=== PATIENT | male | born 1945 | race Caucasian/White ===

== ENCOUNTER 2018-07-04 11:57 | Emergency (ER) | payer BC, OTHER ==
[2018-07-04] MEDS ORDERED: LEVALBUTEROL 1.25 MG/3 ML NEB ONE (13:38)
--- NOTE | 2018-07-04 14:07 | RAD REPORT ---
EXAM DESCRIPTION: RAD - Chest Single View - 07/04/2018 1:53 pm CLINICAL HISTORY: Cough, congestion, fever COMPARISON: None. TECHNIQUE: AP portable chest image was obtained 1348 hours . FINDINGS: Lung volumes are low. Interstitial markings are prominent with the baseline for the patien t unknown. A viral infiltrate or noninfectious interstitial edema cannot be excluded. There is patchy opacification along the left base that could be an early left base pneumonia or atelectasis. Heart a nd vasculature are normal. No measurable pleural effusion and no pneumothorax. No acute bony abnormal ity seen. No acute aortic findings suspected. IMPRESSION: Atelectasis versus early pneumonia lateral left lung base. Diffusely prominent interstitial markings on a baseline examination. A viral infiltrate or noninfecti ous interstitial edema are both possible.
[2018-07-04 14:21] LABS: Absolute Lymphocytes (CBC) 1.5 K/uL (0.7-4.9); Absolute Monocytes 1.2 K/uL (0.1-1.3); Absolute Neutrophil 8.1 K/uL (1.8-8.0); Basophils % 0.4 % (0-1.3); Eosinophils % 0.3 % (0-4.4); Hematocrit 43.3 % (39.6-49.0); Lymphocytes % 13.6 % (15.3-44.8); MPV 8.4 fL (7.6-11.3); Monocytes % 10.7 % (3.3-12.3); RBC Red Blood Cell Count 4.79 M/uL (4.33-5.43)
[2018-07-04 14:22] LABS: Protime INR 1.19
[2018-07-04 14:42] LABS: ALT/SGPT 35 U/L (12-78); AST/SGOT 19 U/L (15-37); Albumin 4.2 g/dL (3.4-5.0); Alkaline Phosphatase 91 U/L (45-117); BUN Blood Urea Nitrogen 11 mg/dL (7-18); Bicarbonate 30 mmol/L (21-32); Bilirubin Direct 0.3 mg/dL (0-0.2); Glucose Level 114 mg/dL (74-106); Magnesium 2.3 mg/dL (1.8-2.4); NT PRO-BNP 270 pg/mL (<125); Potassium 3.8 mmol/L (3.5-5.1); Protein, Total 6.9 g/dL (6.4-8.2); Sodium Level 142 mmol/L (136-145); Troponin (Emerg Dept Use Only) < 0.02 ng/mL (0.0-0.045)
[2018-07-04] MEDS ORDERED: NA CHLORIDE 0.9% 500 ML ONE (14:48)
--- NOTE | 2018-07-04 15:34 | EDPHYS ---
Physician Documentation [facility] Name: Yelitza Seaman Age: 73 yrs Sex: Male : 1945 Arrival Date: 07/04/2018 Time: 12:02 Bed 26 Private MD: ED Physician Hayden Schreiber HPI: 07/04 15:29 This 73 yrs old Male presents to ER via Wheelchair with complaints of Chest kdr Tightness, Cough. 15:29 The patient or guardian reports cough, that is intermittent, described as mild, with no kdr sputum. Onset: The symptoms/episode began/occurred gradually, 2 day(s) ago. Severity of symptoms: At their worst the symptoms were mild, in the emergency department the symptoms are unchanged. Modifying factors: The symptoms are alleviated by nothing, the symptoms are aggravated by exertion. Associated signs and symptoms: Pertinent positives: chest pain, nausea, Pertinent negatives: diarrhea, ear ache, fever, rhinorrhea, sore throat, vomiting. The patient has not experienced similar symptoms in the past. The patient has not recently seen a physician. Historical: - Allergies: 12:14 Morphine; hb - Home Meds: 12:14 lisinopril 10 mg Oral tab [Active]; hb - PMHx: 12:14 Hypertension; Prostate CA; hb - PSHx: 12:14 cataracts; prostatectomy; hb - Immunization history:: Adult Immunizations up to date. - Social history:: Smoking status: Patient/guardian denies using tobacco. - Ebola Screening: : No symptoms or risks identified at this time. ROS: 15:29 Constitutional: Negative for fever, chills, and weight loss, Eyes: Negative for injury, kdr pain, redness, and discharge, ENT: Negative for injury, pain, and discharge, Neck: Negative for injury, pain, and swelling, Cardiovascular: Negative for chest pain, palpitations, and edema, Abdomen/GI: Negative for abdominal pain, nausea, vomiting, diarrhea, and constipation, Back: Negative for injury and pain, : Negative for injury, bleeding, discharge, and swelling, MS/Extremity: Negative for injury and deformity, Skin: Negative for injury, rash, and discoloration, Neuro: Negative for headache, weakness, numbness, tingling, and seizure activity. Psych: Negative for depression, anxiety, suicide ideation, homicidal ideation, and hallucinations, Allergy/Immunology: Negative for hives, rash, and allergies, Endocrine: Negative for neck swelling, polydipsia, polyuria, polyphagia, and marked weight changes, Hematologic/Lymphatic: Negative for swollen nodes, abnormal bleeding, and unusual bruising. 15:29 Respiratory: Positive for cough, with no reported sputum, dyspnea on exertion, shortness of breath, Negative for hemoptysis, orthopnea, pleurisy, wheezing. Exam: 15:29 Constitutional: This is a well developed, well nourished patient who is awake, alert, kdr and in no acute distress. Head/Face: Normocephalic, atraumatic. Eyes: Pupils equal round and reactive to light, extra-ocular motions intact. Lids and lashes normal. Conjunctiva and sclera are non-icteric and not injected. Cornea within normal limits. Periorbital areas with no swelling, redness, or edema. Neck: Trachea midline, no thyromegaly or masses palpated, and no cervical lymphadenopathy. Supple, full range of motion without nuchal rigidity, or vertebral point tenderness. No Meningismus. Chest/axilla: Normal chest wall appearance and motion. Nontender with no deformity. No lesions are appreciated. Cardiovascular: Regular rate and rhythm with a normal S1 and S2. No gallops, murmurs, or rubs. Normal PMI, no JVD. No pulse deficits. Abdomen/GI: Soft, non-tender, with normal bowel sounds. No distension or tympany. No guarding or rebound. No evidence of tenderness throughout. Back: No spinal tenderness. No costovertebral tenderness. Full range of motion. Skin: Warm, dry with normal turgor. Normal color with no rashes, no lesions, and no evidence of cellulitis. MS/ Extremity: Pulses equal, no cyanosis. Neurovascular intact. Full, normal range of motion. Neuro: Awake and alert, GCS 15, oriented to person, place, time, and situation. Cranial nerves II-XII grossly intact. Motor strength 5/5 in all extremities. Sensory grossly intact. Cerebellar exam normal. Normal gait. Psych: Awake, alert, with orientation to person, place and time. Behavior, mood, and affect are within normal limits. 15:29 Respiratory: the patient does not display signs of respiratory distress, Respirations: normal, Breath sounds: rales, that are mild, are located in both bases, decreased breath sounds, that are mild, are scattered, rhonchi, that are mild, stridor, is not appreciated, wheezing: is not appreciated. Vital Signs: 12:11 BP 141 / 62; Pulse 73; Resp 16; Temp 99.1; Pulse Ox 100% on R/A; Pain 0/10; hb 13:13 Pulse 78; Resp 16; Temp 98.8; Pulse Ox 99% on R/A; Pain 2/10; ch 15:00 BP 140 / 58; Pulse 91; Resp 20; Pulse Ox 96% on R/A; Pain 2/10; ch 16:00 BP 131 / 76; Pulse 84; Resp 16; Temp 98.5; Pulse Ox 99% on R/A; Pain 0/10; ch MDM: 15:29 Data reviewed: vital signs, nurses notes, lab test result(s), radiologic studies. kdr Counseling: I had a detailed discussion with the patient and/or guardian regarding: the historical points, exam findings, and any diagnostic results supporting the discharge/admit diagnosis, lab results, radiology results. 15:34 Patient medically screened. [facility] 07/04 13:21 Order name: Basic Metabolic Panel [facility] 07/04 13:21 Order name: CBC with Diff [facility] 07/04 13:21 Order name: LFT's [facility] 07/04 13:21 Order name: Magnesium [facility] 07/04 13:21 Order name: NT PRO-BNP [facility] 07/04 13:21 Order name: PT-INR; Complete Time: 15:19 [facility] 07/04 13:21 Order name: Troponin (emerg Dept Use Only); Complete Time: 15:19 [facility] 07/04 13:21 Order name: Blood Culture Adult (2) [facility] 07/04 13:21 Order name: Basic Metabolic Panel; Complete Time: 15:19 [facility] 07/04 13:21 Order name: CBC with Automated Diff; Complete Time: 15:19 [facility] 07/04 13:21 Order name: Liver (Hepatic) Function; Complete Time: 15:19 [facility] 07/04 13:21 Order name: Magnesium; Complete Time: 15:19 [facility] 07/04 13:21 Order name: NT PRO-BNP; Complete Time: 15:19 [facility] 07/04 13:39 Order name: Flu; Complete Time: 15:19 [facility] 07/04 13:21 Order name: XRAY Chest (1 view); Complete Time: 15:19 [facility] 07/04 13:21 Order name: EKG; Complete Time: 13:22 [facility] 07/04 13:21 Order name: Cardiac monitoring; Complete Time: 16:00 [facility] 07/04 13:21 Order name: EKG - Nurse/Tech; Complete Time: 16:00 [facility] 07/04 13:21 Order name: IV Saline Lock; Complete Time: 15:59 [facility] 07/04 13:21 Order name: Labs collected and sent; Complete Time: 16:00 [facility] 07/04 13:21 Order name: O2 Per Protocol; Complete Time: 13:37 [facility] 07/04 13:21 Order name: O2 Sat Monitoring; Complete Time: 13:37 [facility] Administered Medications: 13:30 Drug: Xopenex (3) 1.25 mg Route: Inhalation; 15:31 Drug: Rocephin - (cefTRIAXone) 1 grams Route: IVPB; Infused Over: 30 mins; Site: left rv antecubital; Disposition: 07/04/18 15:34 Discharged to Home. Impression: Pneumonia, unspecified organism, Shortness of breath. - Condition is Stable. - Discharge Instructions: Community-Acquired Pneumonia, Adult, Shortness of Breath, [place]. - Prescriptions for Zithromax Z- Raheem 250 mg Oral Tablet - take 1 tablet by ORAL route as directed for 5 days Day 1 - take two (2) tablets one time. Day 2, 3, 4 , 5 take one (1) tablet once daily.; 6 tablet. Albuterol Sulfate 90 mcg/actuation - inhale 1-2 puff by INHALATION route every 4-6 hours; 1 Inhaler. - Medication Reconciliation Form, Thank You Letter, Antibiotic Education, Prescription Opioid Use form. - Follow up: Private Physician; When: 1 - 2 days; Reason: If symptoms return, Further diagnostic work-up, Recheck today's complaints, Continuance of care, Re-evaluation by your physician. - Problem is new. - Symptoms have improved. Signatures: Dispatcher [employer] EDDayami Conroy RN RN ch Rittger, Kevin, MD MD [facility] Keila Porter RN RN Bobo Davidson RN RN rv Corrections: (The following items were deleted from the chart) 16:03 15:34 07/04/2018 15:34 Discharged to Home. Impression: Pneumonia, unspecified organism; hb Shortness of breath. Condition is Stable. Forms are Medication Reconciliation Form, Thank You Letter, Antibiotic Education, Prescription Opioid Use. Follow up: Private Physician; When: 1 - 2 days; Reason: If symptoms return, Further diagnostic work-up, Recheck today's complaints, Continuance of care, Re-evaluation by your physician. Problem is new. Symptoms have improved. kdr
--- NOTE | 2018-07-04 15:34 | ER ---
Nurse's Notes [facility] Name: Yelitza Seaman Age: 73 yrs Sex: Male : 1945 Arrival Date: 07/04/2018 Time: 12:02 Bed 26 Private MD: Diagnosis: Pneumonia, unspecified organism;Shortness of breath Presentation: 07/04 12:11 Presenting complaint: Nonproductive cough, pain with cough, chest tightness and nausea hb x 2 day. Transition of care: patient was not received from another setting of care. Onset of symptoms was July 03, 2018. Risk Assessment: Do you want to hurt yourself or someone else? Patient reports no desire to harm self or others. Initial Sepsis Screen: Does the patient meet any 2 criteria? No. Patient's initial sepsis screen is negative. Does the patient have a suspected source of infection? No. Patient's initial sepsis screen is negative. Care prior to arrival: None. 12:11 Method Of Arrival: Wheelchair hb 12:11 Acuity: PIERCE 3 hb Historical: - Allergies: 12:14 Morphine; hb - Home Meds: 12:14 lisinopril 10 mg Oral tab [Active]; hb - PMHx: 12:14 Hypertension; Prostate CA; hb - PSHx: 12:14 cataracts; prostatectomy; hb - Immunization history:: Adult Immunizations up to date. - Social history:: Smoking status: Patient/guardian denies using tobacco. - Ebola Screening: : No symptoms or risks identified at this time. Screenin:13 Abuse screen: Denies threats or abuse. Denies injuries from another. Nutritional ch screening: No deficits noted. Tuberculosis screening: No symptoms or risk factors identified. Fall Risk None identified. Assessment: 13:13 Reassessment: Patient appears in no apparent distress at this time. Patient and/or ch family updated on plan of care and expected duration. Pain level reassessed. Patient is alert, oriented x 3, equal unlabored respirations, skin warm/dry/pink. General: Appears in no apparent distress. uncomfortable, well groomed, well developed, Behavior is calm, cooperative, appropriate for age. Pain: Complains of pain in diaphragm, right breast and left breast Pain does not radiate. Pain currently is 2 out of 10 on a pain scale. at worst was 7 out of 10 on a pain scale. Pain began gradually, 1 day ago. pt states it hurts when he coughs only, now its sore and hurts when he coughs. Neuro: No deficits noted. Cardiovascular: Denies shortness of breath, Capillary refill < 3 seconds in bilateral fingers toes Clubbing of nail beds is absent Patient's skin is warm and dry. Pulses are all present. Edema is absent. 16:00 Reassessment: Patient appears in no apparent distress at this time. No changes from previously documented assessment. Patient and/or family updated on plan of care and expected duration. Pain level reassessed. Patient is alert, oriented x 3, equal unlabored respirations, skin warm/dry/pink. Patient denies pain at this time. Patient states feeling better. Patient states symptoms have improved. Vital Signs: 12:11 BP 141 / 62; Pulse 73; Resp 16; Temp 99.1; Pulse Ox 100% on R/A; Pain 0/10; hb 13:13 Pulse 78; Resp 16; Temp 98.8; Pulse Ox 99% on R/A; Pain 2/10; ch 15:00 BP 140 / 58; Pulse 91; Resp 20; Pulse Ox 96% on R/A; Pain 2/10; ch 16:00 BP 131 / 76; Pulse 84; Resp 16; Temp 98.5; Pulse Ox 99% on R/A; Pain 0/10; ch ED Course: 12:02 Patient arrived in ED. rg4 12:10 Hayden Schreiber MD is Attending Physician. kdr 12:12 Triage completed. hb 12:14 Arm band placed on. hb 13:10 Dayami Perrin, RN is Primary Nurse. ch 13:13 No apparent distress. Resting quietly. ch 13:13 Patient has correct armband on for positive identification. Placed in gown. Bed in low ch position. Call light in reach. Side rails up X 1. Adult w/ patient. Pulse ox on. NIBP on. 13:13 No provider procedures requiring assistance completed. Patient maintains SpO2 ch saturation greater than 95% on room air. 13:39 EKG done, by atmospheric technician. reviewed by Hayden Schreiber MD. sm3 13:43 Missed attempt(s): 20 gauge in right antecubital area. Bleeding controlled, band aid ds4 applied, catheter tip intact. 13:54 XRAY Chest (1 view) In Process Unspecified. EDMS 15:00 Warm blanket given. ch 15:00 IV discontinued, intact, bleeding controlled, No redness/swelling at site. Pressure ch dressing applied. Administered Medications: 13:30 Drug: Xopenex (3) 1.25 mg Route: Inhalation; 15:31 Drug: Rocephin - (cefTRIAXone) 1 grams Route: IVPB; Infused Over: 30 mins; Site: left rv antecubital; Outcome: 15:00 Discharged to home ambulatory, with family. 15:00 Condition: stable 15:00 Discharge instructions given to patient, family, Instructed on discharge instructions, follow up and referral plans. medication usage, Demonstrated understanding of instructions, follow-up care, medications, Prescriptions given X 2. 15:34 Discharge ordered by . kdr 16:03 Patient left the ED. hb Signatures: Dispatcher [employer] EDMS Dayami Perrin, RN RN Hayden Schreiber MD MD kdr Manuel Bradley ds4 Keila Porter RN RN Casandra Sandoval rg4 Ashley Garvey sm3 Bobo Davidson RN RN rv Corrections: (The following items were deleted from the chart) 16:01 12:11 Acuity: PIERCE 4 hb hb
[2018-07-04] MEDS ORDERED: CEFTRIAXONE/SWI 1gm 1 GM/10 ML SYR ONE (15:37)
--- NOTE | 2018-07-05 14:04 | EKG ---
Test Date: 2018-07-04 Test Time: 13:31:21 Low Heel Builder: LUPE MEASUREMENT RESULTS: Intervals: Rate: 74 TX: 200 QRSD: 100 QT: 384 QTc: 426 Violet: P: 55 TX: 200 QRS: 59 T: 4 INTERPRETIVE STATEMENTS: Sinus rhythm with frequent premature ventricular complexes T wave abnormality, consider inferior ischemia Abnormal ECG No previous ECG available for comparison Electronically Signed On 07-05-18 13:59:10 LABORATORY COORDINATOR by Francois Smith
== END 2018-07-04 16:03 | disposition home or self-care (01) ==
LOC: ER 11:57
DX: J18.9 Pneumonia, unspecified organism (principal); I10 Essential (primary) hypertension; C61 Malignant neoplasm of prostate
CPT/HCPCS: 36415; 71045; 80048; 80076; 83735; 83880; 84484; 85025; 85610; 87040; 87804; 93005; J0696